=== PATIENT | female | born 1975 | race Hispanic/Latino ===

== ENCOUNTER 2017-02-02 22:08 | Emergency (ER) | payer SELFPAY ==
[2017-02-02 22:08] VITALS: BMI 26.1
[2017-02-02 22:17] VITALS: BP 110/78; PULSE 77; RESP 18; TEMP 98; O2SAT 100
--- NOTE | 2017-02-02 23:18 | ED PDOC ---
HPI: General Adult Time Seen by Provider: 02/02/17 22:39 Chief Complaint (Nursing): Headache History Per: Patient Additional Complaint(s): Pt. states for the past week she's had atraumatic neck pain radiating to both arms and to head. Reports pain is worsened with movement of neck. Pain began upon awakening from sleep. Denies fever, trauma, rash, chest pain, SOB, abdominal pain. Past Medical History Reviewed: Historical Data, Nursing Documentation, Vital Signs Vital Signs: Last Vital Signs Temp 98 F 02/02/17 22:14 Pulse 77 02/02/17 22:14 Resp 18 02/02/17 22:14 BP 110/78 02/02/17 22:14 Pulse Ox 100 02/02/17 22:14 - Medical History PMH: Gall Bladder Disease, HTN, Kidney Stones - Family History Family History: States: Diabetes - Immunization History Hx Tetanus Toxoid Vaccination: No Hx Influenza Vaccination: No Hx Pneumococcal Vaccination: No - Home Medications Home Medications: Ambulatory Orders Medication Instructions Recorded Cyclobenzaprine [Cyclobenzaprine 10 mg PO Q8H #21 tab 07/13/16 HCl] MetFORMIN [glucoPHAGE] 1,000 mg PO BID 07/13/16 Naproxen [Naprosyn] 500 mg PO BID PRN #20 tablet 07/13/16 Meloxicam [Mobic] 7.5 mg PO DAILY PRN #30 tab 02/02/17 Methocarbamol [Robaxin] 500 mg PO Q8 PRN #30 tab 02/02/17 - Allergies Allergies/Adverse Reactions: Allergies Allergy/AdvReac Type Severity Reaction Status Date / Time No Known Allergies Allergy Verified 03/17/15 14:01 Review of Systems ROS Statement: Except As Marked, All Systems Reviewed And Found Negative Musculoskeletal: Positive for: Neck Pain Physical Exam - Physical Exam Appears: Positive for: Well, Non-toxic, No Acute Distress Head Exam: Positive for: ATRAUMATIC, NORMAL INSPECTION, NORMOCEPHALIC Skin: Positive for: Normal Color, Warm. Negative for: Rash Neck: Positive for: Normal, Painless ROM Back: Positive for: Normal Inspection, Muscle Spasm (paracervical area without mid-line cervical tenderness). Negative for: L CVA Tenderness, R CVA Tenderness , Vertebral Tenderness Extremity: Positive for: Normal ROM, Other (equal fisher diver net strenght b/l) Neurologic/Psych: Positive for: Alert, Oriented - ECG O2 Sat by Pulse Oximetry: 100 - Radiology X-Ray: Interpreted by Me (C-spine x-ray) X-Ray Interpretation: Other (c-spine straightening; no fx) - Progress ED Course And Treament: Toradol IM, flexeril PO given. Disposition - Clinical Impression Clinical Impression: Cervical radiculopathy - Patient ED Disposition Is Patient to be Admitted: No - Disposition Referrals: [facility] [Outside] Disposition: Routine/Home Disposition Time: 23:20 Condition: STABLE Prescriptions: Meloxicam [Mobic] 7.5 mg PO DAILY PRN #30 tab PRN Reason: Pain, Mild (1-3) Methocarbamol [Robaxin] 500 mg PO Q8 PRN #30 tab PRN Reason: Muscle Spasm Instructions: Cervical Radiculopathy (ED), Neck Exercises (GEN) Print Language: SLOVAK
--- NOTE | 2017-02-03 09:33 | RAD ---
PROCEDURE: Cervical Spine Radiographs. HISTORY: Pain. COMPARISON: None. FINDINGS: BONES: Alignment maintained. No fracture. Dens Intact. DISC SPACES: Normal. SOFT TISSUES: Normal. No prevertebral soft tissue swelling. OTHER FINDINGS: None. IMPRESSION: Normal cervical spine radiographs
== END 2017-02-02 23:31 | disposition home or self-care (01) ==
LOC: H.ER 22:08
DX: M54.12 Radiculopathy, cervical region (principal)
CPT/HCPCS: 72040; 81025; 96372; 99283; J1885

== ENCOUNTER 2017-11-04 20:43 | Emergency (ER) | payer SELFPAY ==
[2017-11-04 20:43] VITALS: BMI 26.1
[2017-11-04 21:00] VITALS: BP 126/73; PULSE 101; RESP 16; TEMP 98.4; O2SAT 98
== END 2017-11-04 23:00 | disposition left against medical advice (07) ==
LOC: H.ER 20:43
DX: Z02.89 Encounter for other administrative examinations (principal)

== ENCOUNTER 2018-12-02 18:38 | Emergency (ER) | payer SELFPAY ==
[2018-12-02 18:39] VITALS: BMI 26.1
[2018-12-02 19:05] VITALS: BP 133/82; PULSE 91; RESP 16; TEMP 97.9; O2SAT 99
--- NOTE | 2018-12-02 21:15 | ED PDOC ---
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 She notes she has had similar symptoms in the past and was told in an ED that she had inflammation in her head and neck after a CT, but was discharged and not admitted. Reports this is the same headache now that she has had multiple times in the past unrelieved with Ibuprofen last dose yesterday. Additionally, patient notes she ran out of her Metformin 500mg and Glimepiride 500mg, causing concern over her blood sugar levels. Otherwise, denies head injury, fever, chest pain, shortness of breath, abdominal pain, nausea, and vomiting. PMD: [facility] Past Medical History Reviewed: Historical Data, Nursing Documentation, Vital Signs Vital Signs: Last Vital Signs Temp 97.9 F 12/02/18 19:01 Pulse 91 H 12/02/18 19:01 Resp 16 12/02/18 19:01 BP 133/82 12/02/18 19:01 Pulse Ox 99 12/02/18 19:01 - Medical History PMH: Gall Bladder Disease, HTN, Hypercholesterolemia, Kidney Stones - Surgical History Surgical History: No Surg Hx - Family History Family History: States: Diabetes - Social History Current smoker - smoking cessation education provided: No Alcohol: None Drugs: Denies - Immunization History Hx Tetanus Toxoid Vaccination: No Hx Influenza Vaccination: No Hx Pneumococcal Vaccination: No - Home Medications Home Medications: Ambulatory Orders Medication Instructions Recorded Cyclobenzaprine [Cyclobenzaprine 10 mg PO TID #20 tab 11/27/17 HCl] RX: Naproxen [Naprosyn] 1 tab PO BID PRN #20 tab 11/27/17 Methocarbamol [Robaxin-750] 1 tab PO Q8H #12 tablet 06/05/18 Metoclopramide [Reglan] 10 mg PO TID PRN #10 tab 12/02/18 RX: Naproxen [Naprosyn] 500 mg PO BID PRN #10 tab 12/02/18 RX: metFORMIN [glucOPHAGE] 500 mg PO BID #14 tab 12/02/18 - Allergies Allergies/Adverse Reactions: Allergies Allergy/AdvReac Type Severity Reaction Status Date / Time No Known Allergies Allergy Verified 12/02/18 19:01 Review of Systems ROS Statement: Except As Marked, All Systems Reviewed And Found Negative Constitutional: Negative for: Fever Cardiovascular: Negative for: Chest Pain Respiratory: Negative for: Shortness of Breath Gastrointestinal: Negative for: Nausea, Vomiting, Abdominal Pain Musculoskeletal: Positive for: Neck Pain, Arm Pain (right) Neurological: Positive for: Headache (right sided) Physical Exam - Reviewed Nursing Documentation Reviewed: Yes Vital Signs Reviewed: Yes - Physical Exam Appears: Positive for: No Acute Distress Head Exam: Positive for: ATRAUMATIC, NORMAL INSPECTION, NORMOCEPHALIC Skin: Positive for: Normal Color, Warm Eye Exam: Positive for: Normal appearance, EOMI, PERRL. Negative for: Nystagmus, Other (light sensitivity) Neck: Positive for: Normal, Painless ROM, Supple Cardiovascular/Chest: Positive for: Regular Rate, Rhythm Respiratory: Positive for: Normal Breath Sounds. Negative for: Respiratory Distress Gastrointestinal/Abdominal: Positive for: Normal Exam, Soft. Negative for: Tenderness Back: Positive for: Normal Inspection. Negative for: Vertebral Tenderness Extremity: Positive for: Normal ROM (all extremities) Neurologic/Psych: Positive for: Alert, Oriented (x3). 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 Pt. in no acute dis tress. Reports good relief of pain and headache. Repeat neuro exam remains non- focal. Advised to f/u with [facility] for further evaluation but is to return to ED immediately if symptoms worsen. Also states her DM meds are Metformin 500mg PO BID and glimeperide but does not know how many miligrams she takes. ) Condition: Re-examined, Improved Medical Decision Making Medical Decision Making: Time: 2011 Initial Impression: headache Initial Plan: --CT head without contrast --U-preg --Reglan 10mg PO x2 --Toradol 30mg IM --Accucheck - 276 Scribe Attestation: Documented by Lynn Ackerman, acting as a scribe for Sameer Lauren PA-C. Provider Scribe Attestation: All medical record entries made by the Scribe were at my direction and personally dictated by me. I have reviewed the chart and agree that the record accurately reflects my personal performance of the history, physical exam, medical decision making, and the department course for this patient. I have also personally directed, reviewed, and agree with the discharge instructions and disposition. Disposition - Clinical Impression Clinical Impression: Headache - Patient ED Disposition Is Patient to be Admitted: No - Disposition Referrals: [facility] [Outside] Disposition: Routine/Home Disposition Time: 21:30 Condition: IMPROVED Additional Instructions: LYUDMILA FARRIS, thank you for letting us take care of you today. Your provider was Stefano Jones MD and you were treated for HEAD PAIN. The emergency medical care you received today was directed at your acute symptoms. If you were prescribed any medication, please fill it and take as directed. It may take several days for your symptoms to resolve. Return to the Emergency Department if your symptoms worsen, do not improve, or if you have any other problems. Please contact your doctor or call one of the physicians/clinics you have been referred to that are listed on the Patient Visit Information form that is included in your discharge packet. Bring any paperwork you were given at discharge with you along with any medications you are taking to your follow up visit. Our treatment cannot replace ongoing medical care by a primary care provider outside of the emergency department. Thank you for allowing the [facility] team to be part of your care today. If you had an X-Ray or CT scan: A Radiologist will review the ED reading if any change in treatment is needed we will contact you. If you had a blood, urine, or wound culture: It will take several days for the results, if any change in treatment is needed we will contact you. If you had an STI test: It will take 48 hours for the results. Please call after 1 week if you have not heard back. Prescriptions: RX: metFORMIN [glucOPHAGE] 500 mg PO BID #14 tab Metoclopramide [Reglan] 10 mg PO TID PRN #10 tab PRN Reason: nausea or headache RX: Naproxen [Naprosyn] 500 mg PO BID PRN #10 tab PRN Reason: Pain Instructions: Headache, Adult (DC) Forms: [employer] (Welsh) Print Language: ARMENIAN
--- NOTE | 2018-12-03 09:54 | CT ---
Date of service: 12/02/2018 PROCEDURE: CT HEAD WITHOUT CONTRAST. HISTORY: headache COMPARISON: Noncontrast head CT 11/05/2015. TECHNIQUE: Axial computed tomography images were obtained through the head/brain without intravenous contrast. Radiation dose: Total exam DLP = 685.98 mGy-cm. This CT exam was performed using one or more of the following dose reduction techniques: Automated exposure control, adjustment of the mA and/or kV according to patient size, and/or use of iterative reconstruction technique. FINDINGS: HEMORRHAGE: No intracranial hemorrhage. BRAIN: Normal otto-white matter differentiation and density are appreciated throughout the cerebrum and cerebellum with the brainstem appearing unremarkable as well. There is no mass effect. There is no suspicious extra-axial fluid collection and the midline brain anatomy appears diffusely unremarkable. VENTRICLES: Unremarkable. No hydrocephalus. CALVARIUM: Unremarkable. PARANASAL SINUSES: Unremarkable as visualized. No significant inflammatory changes. MASTOID AIR CELLS: Unremarkable as visualized. No inflammatory changes. OTHER FINDINGS: None. IMPRESSION: Stable, unremarkable unenhanced CT of the Head.
== END 2018-12-02 22:24 | disposition home or self-care (01) ==
LOC: H.ER 18:38
DX: R51 Headache (principal); I10 Essential (primary) hypertension; Z87.442 Personal history of urinary calculi
CPT/HCPCS: 70450; 82948; 96372; 99283; J1885